=== PATIENT | male | born 1995 | race Caucasian/White ===

== ENCOUNTER 2019-05-24 18:20 | Emergency (ER) | payer OTHER ==
[~2019-05-24] VITALS: Ht 188 cm; Wt 66.7 kg
[2019-05-24 18:32] VITALS: BP 135/89
[2019-05-24] MEDS ORDERED: KEFLEX500 M1 PO (18:45)
== END 2019-05-24 18:48 | disposition home or self-care (01) ==
LOC: M.ERS 18:20
DX: K08.89 Other specified disorders of teeth and supporting structures (principal)